=== PATIENT | male | born 1985 | race Caucasian/White ===

== ENCOUNTER 2016-09-24 15:44 | Emergency (ER) | payer SELFPAY ==
[~2016-09-24] VITALS: Ht 190.5 cm; Wt 86.3 kg
[2016-09-24] MEDS ORDERED: NAPR500T3 PO (15:51)
[2016-09-24] MEDS ORDERED: CLINDAMYCIN 900 MG in APPROPRIATE DILUENT 1 EA IV ONE (16:00)
[2016-09-24] MEDS ORDERED: LIDOCAINE 1% MDV 20ML VIAL SC ONE (16:30)
[2016-09-24 16:43] LABS: BASO % 0.3 % (0.0-1.0); EOS # 0.2 K/mm3 (0.0-0.50); EOS % 1.1 % (0.0-3.0); LARGE UNSTAINED CELL # 0.2 K/mm3 (0.0-0.4); LARGE UNSTAINED CELL % 1.1 % (0.0-4.0); LYMPH # 2.5 K/mm3 (1.5-6.5); LYMPH % 12.8 % (24.0-44.0); MEAN CORPUSCULAR HEMOGLOBIN 31.2 pg (27.0-33.0); MEAN CORPUSCULAR HGB CONC 33.5 g/dl (32.0-36.5); MONO # 0.5 K/mm3 (0.0-0.8); MONO % 2.9 % (0.0-5.0); NEUTROPHILS # 14.7 K/mm3 (1.8-7.7); NEUTROPHILS % 81.8 % (36.0-66.0); PLATELET COUNT, AUTOMATED 370 k/mm3 (150-450); WHITE BLOOD COUNT 17.9 K/mm3 (4.0-10.0)
[2016-09-24 16:56] LABS: ANION GAP 5 MEQ/L (8-16); BLOOD UREA NITROGEN 9 MG/DL (7-18); CALCIUM LEVEL 9.4 MG/DL (8.5-10.1); CARBON DIOXIDE LEVEL 28 MEQ/L (21-32); CHLORIDE LEVEL 106 MEQ/L (98-107); CREATININE FOR GFR 0.96 MG/DL (0.70-1.30); GLOMERULAR FILTRATION RATE > 60.0 (>60); GLUCOSE, FASTING 110 MG/DL (70-105); POTASSIUM SERUM 4.5 MEQ/L (3.5-5.1); SODIUM LEVEL 139 MEQ/L (136-145)
--- NOTE | 2016-09-24 16:59 | REP ---
REASON: Swelling and hyperemia. Multiple ultrasonographic images over the region of interest show a complex 5 x 1.8 x 5.5 cm sized mixed echo structure having both fluid and solid components in the subcutanea and deep subcutanea. IMPRESSION: Abnormal cystic and solid structure as described above possibly representing an abscess. This needs to be correlated clinically. Signed by Fabian Smith DO 09/25/2016 09:04 A
[2016-09-24] MEDS ORDERED: CLEO300C2 PO (17:28)
[2016-09-24] MEDS ORDERED: IBUP-1022 PO (17:28)
[2016-09-24 17:35] VITALS: BP 141/76
== END 2016-09-24 17:41 | disposition home or self-care (01) ==
LOC: M ED 15:44
DX: L02.414 Cutaneous abscess of left upper limb (principal); F11.10 Opioid abuse, uncomplicated; F17.210 Nicotine dependence, cigarettes, uncomplicated

== ENCOUNTER 2016-09-26 16:25 | Emergency (ER) | payer SELFPAY ==
[~2016-09-26] VITALS: Ht 190.5 cm; Wt 84.3 kg
[2016-09-26 16:25] VITALS: BP 133/79
[~2016-09-26 16:25] MED LIST: CLEO300C2 PO; IBUP-1022 PO; NAPR500T3 PO
== END 2016-09-26 17:24 | disposition home or self-care (01) ==
LOC: M ED 16:25
DX: Z48.00 Encounter for change or removal of nonsurgical wound dressing (principal); L02.414 Cutaneous abscess of left upper limb

== ENCOUNTER 2016-09-29 17:18 | Emergency (ER) | payer SELFPAY ==
[~2016-09-29] VITALS: Ht 190.5 cm; Wt 85.7 kg
[2016-09-29 17:19] VITALS: BP 142/90
== END 2016-09-29 18:38 | disposition home or self-care (01) ==
LOC: M ED 17:18
DX: Z48.00 Encounter for change or removal of nonsurgical wound dressing (principal); L02.414 Cutaneous abscess of left upper limb

== ENCOUNTER 2016-12-24 16:40 | Emergency (ER) | payer OTHER, SELFPAY ==
[~2016-12-24] VITALS: Ht 190.5 cm; Wt 96.3 kg
[2016-12-24] MEDS ORDERED: IPRATROPIUM 0.5MG/ALBUTEROL 2.5MG INH SOL UD 3ML (DUONEB)(J7620) NEB ONE (17:45)
[2016-12-24] MEDS ORDERED: ALBUTEROL 90 MCG/ACT 8GM HFA INHALER INH ONE (17:45)
--- NOTE | 2016-12-24 18:14 | REP ---
PA and lateral chest: There are no comparisons. The lung vargas are clear. The cardiac size is normal The sandy, mediastinum, and bony thorax are unremarkable. Impression: Negative PA and lateral chest. Signed by Arsenio Swift MD 12/24/2016 06:06 P
[2016-12-24] MEDS ORDERED: ALBU17IN INH (18:43)
[2016-12-24 18:49] VITALS: BP 133/76
== END 2016-12-24 18:50 | disposition home or self-care (01) ==
LOC: M ED 16:40
DX: J20.9 Acute bronchitis, unspecified (principal); Z72.0 Tobacco use

== ENCOUNTER 2020-11-17 11:46 | Inpatient (IN) | payer OTHER ==
[~2020-11-17] VITALS: Ht 188 cm; Wt 95.5 kg
[~2020-11-17 11:46] MED LIST changes: +ALBU17IN INH; +NAPR-885 PO; -NAPR500T3 PO; +NICOTINE 14 MG/24 HR TRANSDERMAL TD SCH
[2020-11-17 13:08] LABS: BASO % 0.2 % (0.0-1.0); EOS # 0.1 10^3/uL (0.0-0.5); HEMATOCRIT 43.8 % (42.0-52.0); HEMOGLOBIN 14.3 g/dl (13.5-17.5); LYMPH # 1.7 10^3/uL (1.5-5.0); LYMPH % 11.4 % (24.0-44.0); MEAN CORPUSCULAR HEMOGLOBIN 30.8 pg (27.0-33.0); MEAN CORPUSCULAR HGB CONC 32.6 g/dl (32.0-36.5); MEAN CORPUSCULAR VOLUME 94.2 fl (80.0-96.0); MONO # 0.8 10^3/uL (0.0-0.8); MONO % 5.2 % (2.0-8.0); NEUTROPHILS % 81.8 % (36.0-66.0); PLATELET COUNT, AUTOMATED 281 10^3/uL (150-450); RED BLOOD COUNT 4.65 10^6/uL (4.30-6.10); WHITE BLOOD COUNT 14.7 10^3/uL (4.0-10.0)
[2020-11-17] MEDS ORDERED: ISOVUE-370 76% 100ML VIAL As Ordered ONE (13:13)
[2020-11-17 13:28] LABS: ERYTHROCYTE SEDIMENTATION RATE 15 mm/hr (0-15)
--- NOTE | 2020-11-17 13:47 | REPVR ---
PROCEDURE INFORMATION: Exam: CT Maxillofacial With Contrast Exam date and time: 11/17/2020 1:14 PM Age: 35 years old Clinical indication: Mass, lump, or swelling; Other: Jaw; Additional info: Lower jaw swelling/ infected TECHNIQUE: Imaging protocol: Computed tomography images of the face with intravenous contrast. Radiation optimization: All CT scans at this facility use at least one of these dose optimization techniques: automated exposure control; mA and/or kV adjustment per patient size (includes targeted exams where dose is matched to clinical indication); or iterative reconstruction. Contrast material: ISOVUE 370; Contrast volume: 75 ml; Contrast route: INTRAVENOUS (IV); COMPARISON: No relevant prior studies available. FINDINGS: Orbital cavity: The orbits are intact. Bones/joints: Degenerative changes along the visualized cervical spine are modest. Paranasal sinuses: Limited paranasal sinus disease without air-fluid levels. Mastoid air cells: The mastoids are well aerated. Soft tissues: Right facial soft tissue swelling most pronounced adjacent to the right mandible and more pronounced superficial rather than deep. No rim enhancing abscess. Submandibular/Parotid glands: No enlargement of the parotid or submandibular glands. No stones in the glands. Lymph nodes: No confluent lymphadenopathy in the neck. Likely reactive nodes in the neck most pronounced at the right submandibular level. Vasculature: No significant carotid disease. Brain: Brain volume is maintained. Dental: There are multiple broken, absent common carious teeth present bilaterally. There are periapical lucencies most pronounced in the left maxilla and the left mandible. I do not appreciate complete cortical breakthrough of the maxilla or mandible. Oropharynx: Parapharyngeal calcifications bilaterally of unlikely clinical significance. Asymmetric low-density thickening on the left at the level of the lingual tonsil and parapharyngeal space measuring 12 x 11 mm. Correlation with direct visualization is recommended. This is probably best seen on axial series 201, image 12. Other findings: No venous thrombus. IMPRESSION: 1. Findings consistent with perimandibular cellulitis on the right probably dental in origin as described. 2. Asymmetric low-density lesion along the left mucosal surface of the neck as described. Direct visualization is recommended. 3. No confluent lymphadenopathy. Electronically signed by: Alejandro Mello On 11/17/2020 13:46:48 PM
[2020-11-17] MEDS ORDERED: KETOROLAC 30 MG/ML 1ML VIAL IV ONE (14:05)
[2020-11-17] MEDS ORDERED: AMPICILLIN SOD/SULBACTAM SOD 3 GM in D5W MINI-BAG PLUS 100 ML IV ONE (14:05)
[2020-11-17] MEDS ORDERED: dexameTHASONE 20MG/5ML VIAL (J1100 PER 1MG) IV ONE (14:05)
[2020-11-17 14:07] VITALS: BP 135/83
[2020-11-17] MEDS ORDERED: ONDANSETRON 4MG/2ML VIAL IV ONE (15:10)
[2020-11-17 15:21] LABS: RSV AMPLIFICATION NEGATIVE (NEGATIVE)
--- NOTE | 2020-11-17 15:43 | CR.PDOC ---
General Date of Consultation: Nov 17, 2020 Referring Provider: DELMA RIZO PA-C Consultation REASON FOR CONSULTATION/CHIEF COMPLAINT: [Left parapharyngeal hypodense lesion]. HISTORY OF PRESENT ILLNESS: [Armani is a 35-year-old gentleman who has a 1 day history of right mandibular swelling. He has a significant history of dental caries. He woke this morning with fever chills and increased swelling. He came to the emergency room a CT scan was done which showed a right submandibular cellulitis and incidental note was made of a left parapharyngeal hypodense lesion. I was asked to come and see him to examine this area to determine if there was anything that would be contributing to his condition. He has had no dysphagia no voice change.]. ALLERGIES: Please see below. HOME MEDICATIONS: Please see below. PAST MEDICAL HISTORY: 1. . 2. . PAST SURGICAL HISTORY: 1. 2. FAMILY HISTORY: Father: Mother: Siblings: Children: Hereditary Diseases: Unexpected deaths due to medical reasons: SOCIAL HISTORY: Marital status and/or living arrangements: Children: Employment: Tobacco use: ETOH: Illicit drug use: IV drug use: Other relevant social factors: REVIEW OF SYSTEMS: CONSTITUTIONAL: . HEENT: . CARDIOVASCULAR: . RESPIRATORY: . GENITOURINARY: . MUSCULOSKELETAL: . GASTROINTESTINAL: . SKIN: . NEUROLOGICAL: . PSYCHIATRIC: . ENDOCRINE: . HEMATOLOGIC/LYMPHATIC: . ALLERGIC/IMMUNOLOGIC: . PHYSICAL EXAMINATION: VITAL SIGNS: Please see below. GENERAL APPEARANCE: [He was alert and oriented in no obvious distress.]. HEENT: [Examination of the face revealed swelling over the right submandibular area. Palpation of this region revealed some mild tenderness scalp was normal. Examination the ears revealed normal auricles normal ear canals and normal tympanic membranes bilaterally. Examination of the nose showed a mild right septal deviation mucosa look normal turbinates were not enlarged. Examination of the oral cavity and oropharynx were clear palpation of the neck revealed some mild tenderness of the right lymph nodes. Left side was normal. Fiberoptic examination: It was recommended that chain undergo a fiberoptic examination of the oropharynx the risks and benefits were reviewed all questions were answered he provide consent. The nose was sprayed with 1% lidocaine with epinephrine. The fiberoptic scope was passed through the right nostril to the nasopharynx which was clear tongue base vallecula piriform and postcricoid areas within normal limits epiglottis was normal supraglottic structures were clear examination of the left parapharyngeal area revealed a mucous retention cyst.]. RESPIRATORY: . CARDIOVASCULAR: . ABDOMEN: . EXTREMITIES: . NEUROLOGICAL: . PSYCHIATRIC: . LABORATORY DATA: Please see below. ASSESSMENT/PLAN: 1. [Right submandibular cellulitis. Agree with plan for admission and IV antibiotics follow-up with oral surgery.]. 2. [Left mucous retention cyst incidental finding no intervention required.]. Vital Signs/I&O Vital Signs Date Time Temp Pulse Resp B/P (MAP) Pulse Ox O2 Delivery O2 Flow Rate FiO2 11/17/20 14:07 98.2 66 18 135/83 (100) 93 Room Air Laboratory Data Labs 24H Laboratory Tests 2 11/17/20 12:40: Immature Granulocyte % (Auto) 0.4, Neutrophils (%) (Auto) 81.8H, Lymphocytes (%) (Auto) 11.4L, Monocytes (%) (Auto) 5.2, Eosinophils (%) (Auto) 1.0, Basophils (%) (Auto) 0.2, Neutrophils # (Auto) 12.0H, Lymphocytes # (Auto) 1.7, Monocytes # (Auto) 0.8, Eosinophils # (Auto) 0.1, Basophils # (Auto) 0.0, Nucleated Red Blood Cells % (auto) 0.0, Erythrocyte Sedimentation Rate 15, C-Reactive Protein, Quantitative 2.25H 11/17/20 12:59: POC Glucose (Misc Panel) 127H, POC Sodium (Misc Panel) 141, POC Potassium (Misc Panel) 4.9, POC Chloride (Misc Panel) 104, POC Total CO2 (Misc Panel) 26.0, POC Blood Urea Nitrogen (Misc Panel 19, POC Ionized Calcium (Misc Panel) 4.6, POC Creatinine (Misc Panel) 0.9, POC Hematocrit (Misc Panel) 44.0 11/17/20 14:15: POC Lactate (Misc Panel) 0.80 11/17/20 14:35: Coronavirus (COVID-19)(PCR) NEGATIVE, Influenza Type A (RT-PCR) NEGATIVE, Inf luenza Type B (RT-PCR) NEGATIVE, Respiratory Syncytial Virus (PCR) NEGATIVE CBC/BMP Laboratory Tests 11/17/20 12:40 Microbiology Microbiology 11/17/20 Blood Culture, Received Pending 11/17/20 Blood Culture, Received Pending Allergies Coded Allergies: No Known Allergies (Unverified , 09/24/16) Varinder Warner MD Nov 17, 2020 15:43
[2020-11-17] MEDS ORDERED: HOME MED LIST COMPLETE! XX SCH (16:10)
--- NOTE | 2020-11-17 16:28 | HPEPDOC ---
[facility] Medical History & Physical Date of Admission Nov 17, 2020 Date of Service: Nov 17, 2020 History and Physical CHIEF COMPLAINT: " Face was hurting and it was swollen" HISTORY OF PRESENT ILLNESS: 35-year-old male with a past medical history of dental caries presented to the emergency department with right submandibular swelling. He reports he began to experience fever and chills for 1 night, and woke up today with right facial swelling. He has associated nausea and vomiting. He has not noted any blood in the vomit. He reports taking ibuprofen which took the edge off the pain. He denies dysphagia, odynophagia, shortness of breath, blurry vision, headaches, chest pain, abdominal pain, problems with urination and bowel movements. In the emergency room a maxillofacial CT scan was done which showed right submandibular cellulitis and an incidental left frontal hypodense lesion. This was evaluated by the ENT team and he underwent fiberoptic examination to further delineate this lesion. It was determined that it was a left mucous retention cyst and no interventions were required. The oral surgeon was contacted by the emergency room and reportedly patient will undergo possible surgery tomorrow. PAST MEDICAL HISTORY: 1. Dental caries PAST SURGICAL HISTORY: 1. Left arm abscess drainage SOCIAL HISTORY: Lives with his and 4-year-old daughter. He reports smoking half a pack a day, and smoking 1 g of marijuana. He denied use of recreational drugs. FAMILY HISTORY: Noncontributory ALLERGIES: Please see below. REVIEW OF SYSTEMS: 10 point review of system was negative except for what is noted in the HPI HOME MEDICATIONS: Please see below. PHYSICAL EXAMINATION: General: Lying in bed, no acute distress Head/Neck/Throat: Trachea midline, mucous membranes moist Eyes: Sclera anicteric, no erythema or discharge appreciated bilaterally Thorax: Normal respiratory effort on room air, lungs clear to auscultation bilaterally, no wheezes/rales/rhonchi Cardiovascular: Normal rate, regular rhythm, normal S1, S2; no S3, S4, rubs/gallops/murmurs Abdomen: Bowel sounds present, soft/nontender/nondistended Genitourinary: No CVA tenderness, no Banerjee in place Musculoskeletal: Moving all extremities, no edema Skin: Right submandibular swelling. Tender to touch. There is no obvious christian inage appreciated on the surface, or within the oral cavity. Neurologic: AAOx3, speech fluent and goal-directed, no focal deficits, grossly intact LABORATORY DATA: See below. IMAGING: CT-maxillofacial 1. Findings consistent with perimandibular cellulitis on the right probably dental in origin as described. 2. Asymmetric low-density lesion along the left mucosal surface of the neck as described. Direct visualization is recommended. 3. No confluent lymphadenopathy. MICROBIOLOGY: Please see below. ASSESSMENT/PLAN: #Face cellulitis -Right submandibular cellulitis. Continue with Unasyn. Oral surgeon to evaluate tomorrow -Keep n.p.o. after midnight #Nicotine use -Smoking cessation education provided. -Nicotine patch #DVT prophylax -heparin subq. Vital Signs Vital Signs Date Time Temp Pulse Resp B/P (MAP) Pulse Ox O2 Delivery O2 Flow Rate FiO2 11/17/20 15:39 96 Room Air 11/17/20 14:07 98.2 66 18 135/83 (100) Laboratory Data Labs 24H Laboratory Tests 2 11/17/20 12:40: Immature Granulocyte % (Auto) 0.4, Neutrophils (%) (Auto) 81.8H, Lymphocytes (%) (Auto) 11.4L, Monocytes (%) (Auto) 5.2, Eosinophils (%) (Auto) 1.0, Basophils (%) (Auto) 0.2, Neutrophils # (Auto) 12.0H, Lymphocytes # (Auto) 1.7, Monocytes # (Auto) 0.8, Eosinophils # (Auto) 0.1, Basophils # (Auto) 0.0, Nucleated Red Blood Cells % (auto) 0.0, Erythrocyte Sedimentation Rate 15, C-Reactive Protein, Quantitative 2.25H 11/17/20 12:59: POC Glucose (Misc Panel) 127H, POC Sodium (Misc Panel) 141, POC Potassium (Misc Panel) 4.9, POC Chloride (Misc Panel) 104, POC Total CO2 (Misc Panel) 26.0, POC Blood Urea Nitrogen (Misc Panel 19, POC Ionized Calcium (Misc Panel) 4.6, POC Creatinine (Misc Panel) 0.9, POC Hematocrit (Misc Panel) 44.0 11/17/20 14:15: POC Lactate (Misc Panel) 0.80 11/17/20 14:35: Coronavirus (COVID-19)(PCR) NEGATIVE, Influenza Type A (RT-PCR) NEGATIVE, Influenza Type B (RT-PCR) NEGATIVE, Respiratory Syncytial Virus (PCR) NEGATIVE CBC/BMP Laboratory Tests 11/17/20 12:40 Microbiology Microbiology 11/17/20 Blood Culture, Received Pending 11/17/20 Blood Culture, Received Pending Home Medications Scheduled Amoxicillin/Potassium Clav (Augmentin 875-125 Tablet) 1 Each Tablet, 1 TAB PO BID Allergies Coded Allergies: No Known Allergies (Unverified , 09/24/16) A-FIB/CHADSVASC A-FIB History Current/History of A-Fib/PAF?: No GRICELDA VANCE M.D. Nov 17, 2020 16:28
[2020-11-17] MEDS ORDERED: KETOROLAC 30 MG/ML 1ML VIAL IV PRN (16:50)
[2020-11-17] MEDS ORDERED: ACETAMINOPHEN TAB 650MG DOSE (2X325MG) PO SCH (18:00)
[2020-11-17] MEDS ORDERED: AUGM875T28 PO (19:57)
--- NOTE | 2020-11-17 20:21 | IPNPDOC ---
Subjective Date Seen The patient was seen on 11/17/20. Subjective Chief Complaint/HPI Around 1940, I was notified that patient wishes to leave against medical advice. I went to go speak with the patient. He is worried about his daughter. His daughter has been freaking out, and he has no option but to go home. I told him that the oral surgeon has not yet seen him. I told him the best option would be if he stayed and let the oral surgeon evaluate him. If we give him oral antibiotics, it may not work. He may develop worsening symptoms, pain, sepsis, and possible if he left against medical advice. He understood and repeated that he could if he left against medical advice. He understand oral antibiotics may not work. Patient signed the paper to leave against medical advice at 1954. Assessment /Plan Plan/VTE VTE Prophylaxis Ordered?: No (Left AMA) VS, I&O, 24H, Fishbone Vital Signs/I&O Vital Signs Date Time Temp Pulse Resp B/P (MAP) Pulse Ox O2 Delivery O2 Flow Rate FiO2 11/17/20 15:39 96 Room Air 11/17/20 14:07 98.2 66 18 135/83 (100) Laboratory Data 24H LABS Laboratory Tests 2 11/17/20 12:40: Immature Granulocyte % (Auto) 0.4, Neutrophils (%) (Auto) 81.8H, Lymphocytes (%) (Auto) 11.4L, Monocytes (%) (Auto) 5.2, Eosinophils (%) (Auto) 1.0, Basophils (%) (Auto) 0.2, Neutrophils # (Auto) 12.0H, Lymphocytes # (Auto) 1.7, Monocytes # (Auto) 0.8, Eosinophils # (Auto) 0.1, Basophils # (Auto) 0.0, Nucleated Red Blood Cells % (auto) 0.0, Erythrocyte Sedimentation Rate 15, C-Reactive Protein, Quantitative 2.25H 11/17/20 12:59: POC Glucose (Misc Panel) 127H, POC Sodium (Misc Panel) 141, POC Potassium (Misc Panel) 4.9, POC Chloride (Misc Panel) 104, POC Total CO2 (Misc Panel) 26.0, POC Blood Urea Nitrogen (Misc Panel 19, POC Ionized Calcium (Misc Panel) 4.6, POC Creatinine (Misc Panel) 0.9, POC Hematocrit (Misc Panel) 44.0 11/17/20 14:15: POC Lactate (Misc Panel) 0.80 11/17/20 14:35: Coronavirus (COVID-19)(PCR) NEGATIVE, Influenza Type A (RT-PCR) NEGATIVE, Influenza Type B (RT-PCR) NEGATIVE, Respiratory Syncytial Virus (PCR) NEGATIVE CBC/BMP Laboratory Tests 11/17/20 12:40 Microbiology Microbiology 11/17/20 Blood Culture, Received Pending 11/17/20 Blood Culture, Received Pending PETR HOSKINS DO Nov 17, 2020 20:21
[2020-11-17] MEDS ORDERED: AMPICILLIN SOD/SULBACTAM SOD 3 GM in D5W MINI-BAG PLUS 100 ML IV SCH (21:00)
[2020-11-17] MEDS ORDERED: HEPARIN SOD (PORCINE) 5000UNITS/ML 1ML VIAL/SYRINGE SQ SCH (22:00)
--- NOTE | 2020-11-18 13:23 | DS.PDOC ---
Discharge Summary General Date of Admission Nov 17, 2020 at 16:28 Date of Discharge 11/18/20 Discharge Summary DISCHARGE DIAGNOSES: 1. Dental caries 2. Face cellulitis COMPLICATIONS/CHIEF COMPLAINT: Facial Cellulitis. HOSPITAL COURSE: 35-year-old male with a past medical history of dental caries presented to the emergency department with right submandibular swelling. He reports he began to experience fever and chills for 1 night, and woke up with right facial swelling. He had associated nausea and vomiting. In the emergency department a maxillofacial CT scan was done which showed right submandibular cellulitis and an incidental left frontal hypodense lesion. He was seen by the ENT team and underwent fiberoptic examination to further delineate the lesion; which turned out to be a left mucous retention cyst and no interventions was required. The oral surgeon was contacted by the emergency room and was to be evaluated possibly for surgery on 11/18. However, the night of 11/17 intake 11/18 he left AGAINST MEDICAL ADVICE (please see progress note). Patient left AGAINST MEDICAL ADVICE during this providers off time. Vital Signs/I&Os Vital Signs Date Time Temp Pulse Resp B/P (MAP) Pulse Ox O2 Delivery O2 Flow Rate FiO2 11/17/20 15:39 96 Room Air 11/17/20 14:07 98.2 66 18 135/83 (100) I&O- Last 24 Hours up to 6 AM 11/18/20 05:59 Intake Total 100 ml Balance 100 ml Laboratory Data Labs 24H Laboratory Tests 2 11/17/20 14:15: POC Lactate (Misc Panel) 0.80 11/17/20 14:35: Coronavirus (COVID-19)(PCR) NEGATIVE, Influenza Type A (RT-PCR) NEGATIVE, Influenza Type B (RT-PCR) NEGATIVE, Respiratory Syncytial Virus (PCR) NEGATIVE Microbiology Microbiology 11/17/20 Blood Culture - Preliminary, Resulted No growth after 24 hours . All specim... 11/17/20 Blood Culture - Preliminary, Resulted No growth after 24 hours . All specim... Discharge Medications Scheduled Amoxicillin/Potassium Clav (Augmentin 875-125 Tablet) 1 Each Tablet, 1 TAB PO BID Allergies Coded Allergies: No Known Allergies (Unverified , 09/24/16) GRICELDA VANCE M.D. Nov 18, 2020 13:23
== END 2020-11-17 21:50 | disposition left against medical advice (07) | DRG 383 ==
LOC: M ED 11:46 → M ED INP 16:28
PROVIDERS: ADMIT Internal Medicine; ATTEND Internal Medicine
DX: L03.211 Cellulitis of face (principal); K02.9 Dental caries, unspecified; Z20.822 Contact with and (suspected) exposure to COVID-19; J34.1 Cyst and mucocele of nose and nasal sinus; F17.210 Nicotine dependence, cigarettes, uncomplicated

== ENCOUNTER → 2021-11-15 | Outpatient (REF) | payer OTHER ==
[~2021-11-15] MED LIST changes: +AUGM875T28 PO; -NICOTINE 14 MG/24 HR TRANSDERMAL TD SCH
== END ==
LOC: M LAB REF 15:58
PROVIDERS: ATTEND Physician Assistant
DX: R50.9 Fever, unspecified (principal)

== ENCOUNTER → 2023-10-08 | Outpatient (CLI) | payer OTHER | LOC: M WUC 15:08 | PROVIDERS: ATTEND Family Medicine | DX: F11.20 Opioid dependence, uncomplicated (principal) | CPT/HCPCS: 36415; G0480 ==